=== PATIENT | male | born 1975 | race Caucasian/White ===

== ENCOUNTER 2020-11-06 12:58 | Emergency (ER) | payer OTHER, SELFPAY ==
--- NOTE | ~2020-11-06 | XR_ITS ---
XR lumbar spine 2-3V 11/06/2020 13:41 Indication: Low back pain for 3 weeks Procedure: 3 views lumbar spine Comparison: No prior studies for comparison. Findings: Vertebral body and disc heights are preserved. No fracture or traumatic malalignment. Pedic les are intact. Sacral foramen are symmetric. No evidence for spondylolisthesis Impression: 1: No acute abnormality of the lumbar spine. Reviewed, dictated and finalized at location A. Impression: 1: No acute abnormality of the lumbar spine.
[2020-11-06 13:08] VITALS: BP 174/102; PULSE 100; RESP 18; TEMP 36.8; O2SAT 98
--- NOTE | 2020-11-06 14:35 | ED.BACK ---
HPI - Back Pain/Injury General Chief Complaint: Back Pain/Injury Stated Complaint: Back Pain Time Seen by Provider: 11/06/20 13:44 Source: patient and RN notes reviewed Mode of arrival: ambulatory Limitations: no limitations History of Present Illness HPI Narrative: Patient presents today with a 3-week history of low back pain. Reports that he has been pulled to a different area at work and asked to perform different duties than normal. 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 Over the last 3 weeks he has been frequently asked to load and unload heavy boxes, bending and standing up for several hours during the workday. Patient works at [employer]. States he has reported several times throughout the last 3 weeks that these new duties have caused him to have some low back pain. States he had asked to go back to his normal duties and at one time told that he could, but then was subsequently pulled back to these heavy lifting duties. Today he asked to go get checked out because his back pain was so severe he did not feel that he could perform these duties. He denies radiation of the pain. Denies numbness or tingling in the extremities. Denies any loss of bowel or bladder control. Currently rates pain 5/10 and describes the pain as a deep ache. Pain increases with bending, and decreased with rest. He has tried no [id number] interventions for symptoms prior to arrival. MD elicited complaint: back pain Related Data Allergies Allergy/AdvReac Type Severity Reaction Status Date / Time No Known Allergies Allergy Verified 11/06/20 13:24 Review of Systems Review of Systems: Narrative: CONSTITUTIONAL: Denies body aches, fever, chills, or sweats. EYES: Denies visual changes, redness, or discharge. ENT: Denies rhinorrhea, congestion, sore throat, or otalgia. CARDIOVASCULAR: Denies chest pain, palpitations, or edema. RESPIRATORY: Denies cough or dyspnea. GASTROINTESTINAL: Denies abdominal pain, nausea, vomiting, or diarrhea. GENITOURINARY: Denies dysuria or hematuria. SKIN: Denies rash, itching, or wounds. MUSCULOSKELETAL: Denies joint pain, or myalgia. + Low back pain NEUROLOGIC: Denies headache, numbness, tingling, or weakness. PSYCH: Denies depression or anxiety. [facility] Past Medical History Medical History (Updated 11/06/20 @ 14:37 by Tess Hooker, CHIEF NURSING OFFICER, ) Hypertension Comments At time of signature, I have reviewed and agree with nursing past medical, surgical, social and family history unless otherwise noted. Please see nursing chart for further information. There is no relevant family history pertinent to the presenting complaint Exam Narrative: Exam Narrative: GENERAL: Well-appearing, well-nourished, and in no acute distress. HEAD: Normocephalic, atraumatic. EYES: EOMI. No redness or drainage. Conjunctivae normal. ENT: Mucous membranes pink and moist. NECK: Normal AROM. CHEST: No respiratory distress. MUSCULOSKELETAL: No bony tenderness of the lumbar spine. Bilateral lumbar paraspinal muscle tenderness, right greater than left. Plantarflexion and dorsiflexion equal and strong. Distal sensation intact. Saddle sensation intact. Capillary refill normal. Pedal pulses normal. Hip flexion equal and strong against resistance. EXTREMITIES: Normal range of motion. No edema. SKIN: Warm, dry, no rash. Capillary refill normal. Normal skin turgor. NEURO: No focal deficits. Alert and oriented x3. Gait steady. PSYCH: Normal affect. No signs of depression or anxiety. Course Vital Signs Vital signs: Vital Signs Temperature 98.3 F 11/06/20 13:08 Pulse Rate 100 11/06/20 13:08 Respiratory Rate 18 11/06/20 13:08 Blood Pressure 174/102 H 11/06/20 13:08 Pulse Oximetry 98 11/06/20 13:08 Temperature 98.3 F 11/06/20 13:08 Pulse Rate 100 11/06/20 13:08 Respiratory Rate 18 11/06/20 13:08 Blood Pressure 174/102 H 11/06/20 13:08 Pulse Oximetry 98
== END 2020-11-06 14:36 | disposition home or self-care (01) ==
PROVIDERS: Emergency Provider Nurse Practitioner; PCP Family Medicine
DX: S39.012A Strain of muscle, fascia and tendon of lower back, initial encounter (principal); X50.0XXA Overexertion from strenuous movement or load, initial encounter; Y99.0 Civilian activity done for income or pay; I10 Essential (primary) hypertension
CPT/HCPCS: 72100; 99213; G0463

== ENCOUNTER 2022-07-07 10:06 | Emergency (ER) | payer OTHER, SELFPAY ==
--- NOTE | ~2022-07-07 | XR_ITS ---
EXAMINATION: XR chest 2V 07/07/2022 12:20 INDICATION: Cough and fever PROCEDURE: 2 view chest COMPARISON: 07/27/2007 FINDINGS: The lungs are clear. The cardiomediastinal silhouette is within normal limits. There are no pleural effusions. There is no pneumothorax suspected. IMPRESSION: 1: NO ACUTE CARDIOPULMONARY DISEASE. Reviewed, dictated and finalized at location B. NCIAL AUDITOR
[2022-07-07 10:23] VITALS: BP 143/94; PULSE 113; RESP 16; TEMP 37.8; O2SAT 98
--- NOTE | 2022-07-07 12:43 | ED.URI ---
HPI - URI/Sore Throat General Chief Complaint: Upper Respiratory Infection Stated Complaint: Cough/Chills/Bodyaches Time Seen by Provider: 07/07/22 12:00 Source: patient, RN notes reviewed and old records reviewed Mode of arrival: ambulatory Limitations: no limitations History of Present Illness HPI Narrative: 47-year-old male who presents to [facility] with complaints of cough, chills, body aches since yesterday. Patient states he has some tiredness,cough with some shortness breath and wheezing with fever up to 101.6. Patient states it hurts to cough, he has nasal drainage with headache. Patient reports family was diagnosed with influenza Tuesday. Patient is a daily pack-a-day smoker for 25 years. Patient reports he has been taking Tylenol and Tylenol cold and flu for his symptoms. Patient reports that his upper chest hurts with cough.Patient has not had COVID or flu vaccinations. MD elicited complaint: fever, cough, rhinorrhea, nasal congestion and other (Body aches, headache) Pertinent past history: other (tobacco use) Onset (ago): day(s) (day 2 of symptoms) Pain scale (0-10): 7 Treatments prior to arrival: acetaminophen and cold medicine (Tylenol cold and flu) Related Data Home Medications Medication Instructions Recorded Confirmed atorvastatin 40 mg tablet 40 mg PO DAILY 07/07/22 07/07/22 famotidine 20 mg tablet 20 mg PO BID 07/07/22 07/07/22 fluoxetine 20 mg capsule 20 mg PO DAILY 07/07/22 07/07/22 lisinopril 20 1 tablet PO DAILY 07/07/22 07/07/22 mg-hydrochlorothiazide 12.5 mg tablet Allergies Allergy/AdvReac Type Severity Reaction Status Date / Time No Known Allergies Allergy Verified 07/07/22 10:46 Review of Systems Review of Systems: CONSTITUTIONAL: Reports malaise, chills, sweats, or fever. EYES: Denies visual changes, redness, or discharge. ENT: Reports rhinorrhea, congestion, sinus pain, no otalgia positive for sore throat. CARDIOVASCULAR: Denies chest pain, palpitations, or edema. RESPIRATORY: Reports cough.? Some dyspnea and wheezing GASTROINTESTINAL: Denies abdominal pain, nausea, vomiting, diarrhea SKIN: Denies rash or itching. MUSCULOSKELETAL: Reports myalgia. NEUROLOGIC: Reports headache. All systems reviewed & are unremarkable except as noted in HPI and below PMFSH Past Medical History Medical History (Updated 07/12/22 @ 14:44 by Joan Ag NP) Anxiety Closed right clavicular fracture GERD (gastroesophageal reflux disease) Hypertension Left rib fracture Social History Social History (Updated 07/12/22 @ 14:43 by Joan Ag NP) Smoking packs per day: 1 Smoking cigarettes per day: 20.0 Years smoked: 25 Smoking pack-years: 25.00 Smoking status: Current every day smoker Alcohol intake: unknown Substance use type: does not use Living arrangements: with family Gender identity (if verbalized by the patient): Male Comments At time of signature, agree with nursing past medical, surgical, social and family history. There is no relevant family history pertinent to the presenting complaint Exam Narrative: GENERAL:Ill-appearing, well-nourished, and in no acute distress. HEAD: Normocephalic EYES: PERRLA, conjunctivae clear ENT: Nares clear, turbinates edematous and erythematous, yellow discharge. Mucous membranes moist. TM pearly shea with dull light reflex bilaterally; no tragal tenderness. Oropharynx erythematous without lesions. Tonsils not enlarged and without exudate, no drooling, no hoarseness, no trismus, uvula midline.post nasal drainage NECK: Supple. No lymphadenopathy CHEST: Scattered wheezing, breath sounds equal. positive for wheezing,no rhonchi, rales, or stridor. No respiratory distress, speaks in full sentences.SAO2 98% on room air HEART: Regular rate and rhythm. No murmur heard. SKIN: Warm, dry, no rash. NEURO: Alert and oriented x3. PSYCH: Normal mood and affect Course Course Emergency Course: [place]
== END 2022-07-07 13:10 | disposition home or self-care (01) ==
PROVIDERS: Emergency Provider Registered Nurse; PCP Family Medicine
DX: J11.1 Influenza due to unidentified influenza virus with other respiratory manifestations (principal); J40 Bronchitis, not specified as acute or chronic; I10 Essential (primary) hypertension
CPT/HCPCS: 71046; 99213; G0463

== ENCOUNTER 2022-12-13 12:12 | Emergency (ER) | payer OTHER, SELFPAY ==
--- NOTE | 2022-12-13 12:17 | ED.URI ---
HPI - URI/Sore Throat General Chief Complaint: Upper Respiratory Infection Stated Complaint: Congestion/Cough Time Seen by Provider: 12/13/22 12:17 Source: patient and RN notes reviewed History of Present Illness HPI Narrative: Patient is a 47-year-old male who presents to urgent care with complaints of congestion and cough. Patient states has been ongoing for approximately 3 weeks. Patient is a current everyday smoker. Reports of nasal drainage and some inconsistent shortness of breath. Denies any fever, nausea or vomiting. No other acute complaints. No acute distress noted. Patient aware of the plan of care. Some parts of this dictation were generated by voice recognition software and may contain typographical and/or grammatical inaccuracies. Related Data Home Medications Medication Instructions Recorded Confirmed atorvastatin 40 mg tablet 40 mg PO DAILY 07/07/22 12/13/22 famotidine 20 mg tablet 20 mg PO BID 07/07/22 12/13/22 fluoxetine 20 mg capsule 20 mg PO DAILY 07/07/22 12/13/22 lisinopril 20 1 tablet PO DAILY 07/07/22 12/13/22 mg-hydrochlorothiazide 12.5 mg tablet Allergies Allergy/AdvReac Type Severity Reaction Status Date / Time No Known Allergies Allergy Verified 12/13/22 12:31 Review of Systems Review of Systems: CONSTITUTIONAL: Denies fever, chills, or sweats. EYES: Denies visual changes, redness, or discharge. ENT: Denies rhinorrhea,sore throat, or otalgia. Reports of nasal drainage and sinus congestion CARDIOVASCULAR: Denies chest pain, palpitations, or edema. RESPIRATORY reports of nonproductive cough with intermittent dyspnea and chest congestion GASTROINTESTINAL: Denies abdominal pain, nausea, vomiting, or diarrhea. GENITOURINARY: Denies dysuria or hematuria. SKIN: Denies rash or itching. MUSCULOSKELETAL: Denies back pain, joint pain, or myalgia. NEUROLOGIC: Denies headache, numbness, or weakness. All other systems reviewed are negative, except as documented in HPI. [facility] Past Medical History Medical History (Updated 12/13/22 @ 12:43 by MICAELA Smith) Anxiety Closed right clavicular fracture GERD (gastroesophageal reflux disease) Hypertension Left rib fracture Social History Social History (Updated 07/12/22 @ 14:43 by Joan Ag NP) Smoking packs per day: 1 Smoking cigarettes per day: 20.0 Years smoked: 25 Smoking pack-years: 25.00 Smoking status: Current every day smoker Alcohol intake: unknown Substance use type: does not use Living arrangements: with family Gender identity (if verbalized by the patient): Male Comments At the time of my signature, I reviewed and agree with the nursing past medical, surgical, social, and family history. There is no relevant family history pertinent to the patient complaint. Exam Narrative: GENERAL: This is a well-nourished, well-developed patient, in no apparent distress. HEAD: normocephalic, atraumatic. EYES: PERRL. Sclera clear/white. Vision is grossly intact. EARS: External ears normal, auditory canals clear and without drainage, TMs normal without perforation. Hearing grossly intact. NOSE: External nose normal with no obvious nasal discharge, nares without redness, clear rhinorrhea. THROAT: Mucous membranes moist, posterior pharynx clear. Moderate postnasal drainage NECK: Neck supple, RESPIRATORY: Inspiratory wheezes with crackles throughout, persistent coughing during deep breathing SKIN: warm, intact with no suspicious lesions or rash, good texture and turgor. NEURO: awake, alert, and oriented to person, place and time. There were no obvious focal neurologic abnormalities. EXTREMITIES: No clubbing, cyanosis, or edema. Course Course Level of Care: Express Care Visit Vital Signs Vital signs: Vital Signs Pulse Rate 111 H 12/13/22 12:30 Respiratory Rate 20 12/13/22 12:30 Blood Pressure 128/60 12/13/22 12:30 Pulse Oximetry 97 12/13/22 12:30 Oxygen Delivery Room Air 0
[2022-12-13 12:30] VITALS: BP 128/60; PULSE 111; RESP 20; O2SAT 97
[2022-12-13 12:32] VITALS: BP 128/60; PULSE 111; RESP 20; O2SAT 97
== END 2022-12-13 12:48 | disposition home or self-care (01) ==
PROVIDERS: Emergency Provider Nurse Practitioner Family; PCP Family Medicine
DX: J40 Bronchitis, not specified as acute or chronic (principal); F17.210 Nicotine dependence, cigarettes, uncomplicated; K21.9 Gastro-esophageal reflux disease without esophagitis; I10 Essential (primary) hypertension; F41.9 Anxiety disorder, unspecified
CPT/HCPCS: 99213; G0463

== ENCOUNTER 2023-06-01 11:01 | Emergency (ER) | payer BC, MEDICAID, SELFPAY ==
--- NOTE | ~2023-06-01 | XR_ITS ---
Right ankle Technique: AP, oblique, and lateral views were obtained. Clinical History: Pain Findings: No acute fracture or dislocation is seen. Osseous alignment is anatomic. Ankle mortise and other visualized joint spaces are preserved. Diffuse soft tissue swelling is present about the ankle. Impression: Diffuse soft tissue swelling. No fracture or dislocation seen. Reviewed, dictated and finalized at [facility]. Impression: Diffuse soft tissue swelling. No fracture or dislocation seen.
[2023-06-01 11:09] VITALS: BP 166/108; PULSE 100; RESP 18; TEMP 36.3; O2SAT 100
--- NOTE | 2023-06-01 11:14 | ED.LOWEXIN ---
HPI - Extremity Injury (Lower) General Chief Complaint: Extremity Injury, Lower Stated Complaint: Right Foot Injury Source: patient, family and RN notes reviewed History of Present Illness HPI Narrative: 48 yo M presents to urgent care with mom at side. Pt states he has been having right foot and ankle pain and swelling x 1 month. Pt states 1 month ago, he injured his right ankle going down a stair, thinks he may have twisted it. Pt states he developed redness to his foot and lower leg 1 week ago. Pt states the underneath of his 2nd toe has been raw from wearing bad shoes. Denies any fevers, chills, chest pain, SOB, numbness, or tingling. Pt reports itching to his right lower leg. Related Data Home Medications Medication Instructions Recorded Confirmed atorvastatin 40 mg tablet 40 mg PO DAILY 07/07/22 06/01/23 famotidine 20 mg tablet 20 mg PO BID 07/07/22 06/01/23 fluoxetine 20 mg capsule 20 mg PO DAILY 07/07/22 06/01/23 lisinopril 20 1 tablet PO DAILY 07/07/22 06/01/23 mg-hydrochlorothiazide 12.5 mg tablet Allergies Allergy/AdvReac Type Severity Reaction Status Date / Time No Known Allergies Allergy Verified 06/01/23 11:21 Review of Systems Review of Systems: CONSTITUTIONAL: Denies fever, chills, or sweats. EYES: Denies visual changes, redness, or discharge. ENT: Denies otalgia and sore throat CARDIOVASCULAR: Denies chest pain, palpitations, or edema. RESPIRATORY: Denies cough or dyspnea. GASTROINTESTINAL: Denies abdominal pain, nausea, vomiting, or diarrhea. GENITOURINARY: Denies dysuria or hematuria. SKIN: Denies rash or itching. MUSCULOSKELETAL: Right foot pain, swelling, and redness. Right intermittent ankle pain. NEUROLOGIC: Denies headache, numbness, or weakness. Pertinent positives per HPI. [facility] Past Medical History Medical History (Updated 06/01/23 @ 11:41 by Mora Mott APRN) Anxiety Closed right clavicular fracture GERD (gastroesophageal reflux disease) Hypertension Left rib fracture Social History Social History (Updated 07/12/22 @ 14:43 by Joan Ag NP) Smoking packs per day: 1 Smoking cigarettes per day: 20.0 Years smoked: 25 Smoking pack-years: 25.00 Smoking status: Current every day smoker Alcohol intake: unknown Substance use type: does not use Living arrangements: with family Gender identity (if verbalized by the patient): Male Comments At the time of my signature, I reviewed and agree with the nursing past medical, surgical, social, and family history. There is no relevant family history pertinent to the patient complaint. Exam Narrative: GENERAL: This is a well-nourished, well-developed patient, in no apparent distress. HEAD: normocephalic, atraumatic. EYES: Sclera clear/white. Vision is grossly intact. EARS: External ears normal, auditory canals clear and without drainage. Hearing grossly intact. NOSE: External nose normal with no obvious nasal discharge, nares without redness, no rhinorrhea. THROAT: Mucous membranes moist, posterior pharynx clear. NECK: Neck supple, non-tender without lymphadenopathy, masses or thyromegaly. CARDIOVASCULAR: Regular rate RESPIRATORY: No respiratory distress SKIN: warm, intact with no suspicious lesions or rash, good texture and turgor. NEURO: awake, alert, and oriented to person, place and time. There were no obvious focal neurologic abnormalities. EXTREMITIES: 2+ pitting edema to right foot and ankle. 1 + pitting edema to left foot. Erythema extending from right toes to mid/proximal lower leg. The erythema is circumferential in the lower leg and ankle. No exudate or drainage. Pt's right 2nd toe is mildly excoriated on the posterior side. Mild tenderness to right lateral ankle. Course Course Level of Care: Express Care Visit Vital Signs Vital signs: Vital Signs Temperature 97.3 F L 06/01/23 11:09 Pulse Rate 100 06/01/23 11:09 Respiratory Rate 18 06/01/23 11:09 Blood Pr
== END 2023-06-01 12:20 | disposition home or self-care (01) ==
PROVIDERS: Emergency Provider Nurse Practitioner Family; PCP Family Medicine
DX: L03.116 Cellulitis of left lower limb (principal); F17.210 Nicotine dependence, cigarettes, uncomplicated; K21.9 Gastro-esophageal reflux disease without esophagitis; I10 Essential (primary) hypertension; F41.9 Anxiety disorder, unspecified
CPT/HCPCS: 73610; 99213; G0463